=== PATIENT | female | born 1955 | race Caucasian/White ===

== ENCOUNTER 2016-12-15 10:52 | Inpatient (IN) | payer BC ==
[~2016-12-15] VITALS: Ht 160 cm; Wt 72.6 kg
--- NOTE | ~2016-12-15 | O ---
[facility] [place] [address] OPERATIVE REPORT Name: JH NIELSON ISAIAS Room #: 548-I ADM IN M.R.#: [id number] Admission: 12/15/16 Attend Phys: Marcelino Coleman Discharge: Date of : 55 Report #: [id number] THIS REPORT FOR: //name// CC: Lamont BEY DATE OF SERVICE: 12/16/2016 SURGEON: Tim Cruz M.D. PREOPERATIVE DIAGNOSIS: Neck abscess. POSTOPERATIVE DIAGNOSIS: Neck abscess. OPERATIVE PROCEDURE: Incision and drainage of neck abscess. ANESTHESIA: General. ESTIMATED BLOOD LOSS: 3 mL. INDICATIONS: The patient is a 61-year-old female who has developed a submental neck abscess following a dog bite to the neck. She has been treated with intravenous Zosyn. She has a well demarcated submental neck abscess. DESCRIPTION OF PROCEDURE: The patient was placed on the operating table in a supine position. After general anesthesia was achieved, attention was turned to the neck. I injected the soft tissue around the abscess site with 0.5% Marcaine with epinephrine. The neck was then prepped with Betadine. A 2 cm horizontal incision was made in the submental skin. The abscess cavity is opened with a Lexy forceps. Pus came from this and was cultured. There was actually necrotic tissue and a deep forming abscess. I was able to insert my finger and break some loculations loose and open up the abscess space. This was then irrigated with sterile saline. A 5/8 inch [place] drain was inserted and secured to the skin with 4-0 nylon suture. Gauze dressing was applied. The patient was awakened in the operating room, taken to recovery room in stable condition. She will be observed overnight and continued on intravenous antibiotics per the direction of Dr. Dany Rodriguez. Diet will be advanced as tolerated. ACTIVITY: Limited. [facility] [address] [place] [address] OPERATIVE REPORT Name: NISREENJH ISAIAS Room #: 548-I ADM IN [facility].#: [id number] Admission: 12/15/16 Attend Phys: Marcelino Coleman Discharge: Date of : 55 Report #: [id number] She will have the drain in for 3-4 days. <ELECTRONICALLY SIGNED> By: Tim Cruz MD 12/16/16 [id number] 1825 Tim Cruz MD /nt
--- NOTE | ~2016-12-15 | H ---
[facility] [place] [address] [place] [address] HISTORY AND PHYSICAL Name: NISREENJH ISAIAS Room #: 548-I ADM IN .R.#: [id number] Admission: 12/15/16 Attend Phys: Marcelino Coleman Discharge: Date of : 55 Report #: [id number] THIS REPORT FOR: //name// CC: Lamont BEY DATE OF SERVICE: 12/15/2016 CHIEF COMPLAINT: Neck pain. HISTORY OF PRESENT ILLNESS: The patient is a 61-year-old female who was admitted after being bitten by her dog several days ago just below the chin. She had increasing swelling and redness. She was treated on an outpatient basis through the emergency room with Augmentin. However, she developed spontaneous drainage yesterday from the wound and has felt some mild chills. She is admitted for IV antibiotics. PAST MEDICAL HISTORY: Breast cancer, she takes Arimidex; hypertension and depression. PAST SURGICAL HISTORY: She has had bilateral mastectomy with breast reconstruction in 2010. She had radiation therapy. She has also had hysterectomy, arthroscopic knee surgery and a laparoscopic gastric banding. FAMILY HISTORY: Noncontributory. SOCIAL HISTORY: No chronic alcohol or tobacco use. ALLERGIES: OXYCODONE, CODEINE and ACETAMINOPHEN. MEDICATIONS: Arimidex and Augmentin. REVIEW OF SYSTEMS: She denies headache, chest pain, shortness of breath, abdominal pain, nausea, vomiting, diarrhea, constipation, dysuria or syncope. PHYSICAL EXAMINATION: VITAL SIGNS: Temperature 36.7, pulse 72, respirations 18 and blood pressure 126/65. GENERAL: She is awake and alert, in no distress. HEENT: There is some redness under the chin. LUNGS: Clear. HEART: Regular. ABDOMEN: Soft. Normoactive bowel sounds. EXTREMITIES: No edema. NEUROLOGIC: Nonfocal. [facility] [address] [place] [address] HISTORY AND PHYSICAL Name: JH NIELSON [facility] Room #: 548-I ADM IN .R.#: [id number] Admission: 12/15/16 Attend Phys: Marcelino Coleman Discharge: Date of : 55 Report #: [id number] ASSESSMENT: Cellulitis. PLAN: ID and ENT are involved. She may need some debridement later today, as re-assessed by Dr. Cruz. Continue current medications. <ELECTRONICALLY SIGNED> By: Shawn Aburto MD 12/16/16 1559 1012 1057 Shawn Aburto MD /nt
--- NOTE | ~2016-12-15 | D ---
[facility] [place] [address] DISCHARGE SUMMARY Name: JH NIELSON Room #: 548-I [facility] IN M.R.#: [id number] Admission: 12/15/16 Attend Phys: Marcelino Coleman Discharge: 12/18/16 Date of : 55 Report #: [id number] THIS REPORT FOR: //name// CC: Lamont BEY DATE OF SERVICE: 12/18/2016 FINAL DIAGNOSES: Facial abscess. HOSPITAL COURSE: The patient was admitted from home after failing an outpatient treatment for a dog bite under her chin. She was found to have an abscess. She was taken to the operating room by Dr. Cruz for incision and debridement. Please see the separate dictated operative note. Dr. Dany Rodriguez followed her and ordered IV antibiotics. She had no other interval complication. DISPOSITION: She is being discharged to home with diet and activity as tolerated. She will have wound packing and follow up with Dr. Cruz. Outpatient IV antibiotics have been arranged. <ELECTRONICALLY SIGNED> By: Shawn Aburto MD 12/26/16 0940 1629 1651 Shawn Aburto MD /nt
--- NOTE | ~2016-12-15 | HC ---
[facility] [place] [address] [place] [address] CONSULTATION Name: NISREENJH ISAIAS Room #: 548-I ADM IN M.R.#: [id number] Admission: 12/15/16 Attend Phys: Marcelino Coleman Discharge: Date of : 55 Report #: [id number] THIS REPORT FOR: //name// CC: Lamont BEY REASON FOR CONSULTATION: Submental soft tissue infection after dog bite. HISTORY OF PRESENT ILLNESS: The patient is a 61-year-old previous history of breast cancer on Arimidex who was bitten several days ago by her own dog, just below the chin. Also had a bite injury to her right second finger. Presented to the Emergency Room with tetanus immunization updated. No incision and drainage performed. Treated with Augmentin and discharged. She had some spontaneous drainage yesterday from the bite wound. This morning, much increased in the swelling in the submental region along with some mild chills. No documented fever. She has malaise. REVIEW OF SYSTEMS: Notes no nausea, vomiting, diarrhea, dysuria or frequency. No headache. She is able to swallow without issue. Appetite has been reasonable. ALLERGIES: CODEINE. MEDICATIONS: As noted on her MAR including Augmentin. She was placed on Zosyn today. PAST MEDICAL HISTORY: Bilateral mastectomy, breast reconstruction 2010, right eye choroid melanoma, status post radiation treatment, hypertension, depression, laparoscopic banding, hysterectomy, arthroscopic knee surgery. FAMILY HISTORY: Noncontributory. SOCIAL HISTORY: Nonsmoker, no significant alcohol intake. PHYSICAL EXAMINATION: VITAL SIGNS: Afebrile, hemodynamically stable. GENERAL: Alert, cooperative and pleasant. She had a bite injury to her submental region involving her neck. Indurated, exquisitely tender, ecchymotic with one puncture wound evident with an eschar. NECK: No lymphadenopathy. Otherwise supple. HEENT: Trachea was midline, unremarkable. Mouth unremarkable. Able to swallow without difficulty. Phonation was normal. NEUROLOGICAL: Cranial nerves intact. LUNGS: Clear. HEART: Regular. ABDOMEN: Soft. EXTREMITIES: The right second finger, small laceration with induration and [facility] [address] [place] [address] CONSULTATION Name: JH NIELSON [facility] Room #: 548-I ADM IN [facility].#: [id number] Admission: 12/15/16 Attend Phys: Marcelino Coleman Discharge: Date of : 55 Report #: [id number]. No purulent drainage identified. LABORATORY STUDIES: CT scan of the neck. Mild straining in the ____ below the mandible and floor of the mouth with no definite fluid collection. Sodium 138, potassium 4.2, bicarbonate 30, creatinine is 0.7. Hemoglobin 12.8, white count 7.1, platelet count 239,000, 73% segs, 13% lymphs. IMPRESSION: A 61-year-old status post dog bite having failed oral antibiotic therapy. Recommend continuing IV antibiotic therapy, apply heat. We will have surgery standby for if she does not begin to improve with the incision and drainage. <ELECTRONICALLY SIGNED> By: Dany Rodriguez MD 12/16/16 1857 1426 2219 Dany Rodriguez MD /nt
[2016-12-15 10:52] VITALS: BP 126/79
[~2016-12-15 10:52] MED LIST: ANCEF 1GM1 GM/50 M1; ARIMIDEX1 MG PO; ATIVAN0.5 MG PO; BACTRIM; BENICAR; BENICAR40 MG PO; BYSTOLIC 5 MG5 M1 PO; CRESTOR; CRESTOR10 MG PO; LEXAPRO20 MG PO; NORCO 5-325 TA1 EACH PO; SYNTHROID; TYLENOL325 MG PO; WELLBUTRIN XL300 MG PO
[2016-12-15] MEDS ORDERED: AMOXICILLIN 50500 MG PO (11:19)
[2016-12-15] MEDS ORDERED: BENICAR40 MG PO (11:22)
[2016-12-15 12:03] LABS: ABSOLUTE NEUTROPHILS 5.2 thou/uL (1.4-8.2); BASOPHILS 0.6 % (0.0-2.0); EOSINOPHILS 2.2 % (0.0-3.0); HEMATOCRIT 38.6 % (37.0-47.0); HEMOGLOBIN 12.8 gm/dL (12.0-15.0); LYMPHOCYTES 15.8 % (24.0-44.0); MCH 27.6 pg (26.0-34.0); MCHC 33.2 % (28.0-37.0); MCV 83.3 fL (80.0-100.0); MONOCYTES 7.8 % (1.0-8.0); PLATELET COUNT 239 thou/uL (150-400); POLYS 73.6 % (36.0-66.0); RBC 4.63 mil/uL (4.20-5.00); RDW 13.8 % (10.5-14.5); WBC 7.1 thou/uL (4.0-11.0)
[2016-12-15 12:04] LABS: MANUAL DIFF NO
[2016-12-15 12:07] LABS: CALCIUM 9.1 mg/dL (8.5-10.1); CREATININE 0.7 mg/dL (0.6-1.3); POTASSIUM 4.2 mmol/L (3.5-5.1)
[2016-12-15 14:58] VITALS: BP 140/64
[2016-12-15] MEDS ORDERED: AUGMENTIN 875875 MG PO (16:04)
[2016-12-15] MEDS ORDERED: IBUPROFEN 200200 M1 PO (16:06)
[2016-12-15 21:49] VITALS: BP 125/58
[2016-12-15 23:50] VITALS: BP 96/46
[2016-12-16 05:01] VITALS: BP 126/65
[2016-12-16 20:40] VITALS: BP 127/63
[2016-12-17 04:02] VITALS: BP 139/63
[2016-12-17 16:26] VITALS: BP 142/62
[2016-12-17 19:27] VITALS: BP 136/68
[2016-12-18 04:24] VITALS: BP 118/72
[2016-12-18 08:00] VITALS: BP 142/58
== END 2016-12-18 18:40 | disposition home or self-care (01) | DRG 581 ==
LOC: ER 10:52 → EROBS 13:12 → 5S 13:12
PROVIDERS: Emergency Medicine
PROC: 0J940ZZ Drainage of Right Neck Subcutaneous Tissue and Fascia, Open Approach (ICD-10-PCS; principal; 2016-12-16)
DX: L02.11 Cutaneous abscess of neck (principal); S10.87XA Other superficial bite of other specified part of neck, initial encounter; F32.9 Major depressive disorder, single episode, unspecified; K21.9 Gastro-esophageal reflux disease without esophagitis; I10 Essential (primary) hypertension; F41.9 Anxiety disorder, unspecified; J45.909 Unspecified asthma, uncomplicated; W54.0XXA Bitten by dog, initial encounter; Z88.6 Allergy status to analgesic agent; Y93.89 Activity, other specified; Y92.89 Other specified places as the place of occurrence of the external cause; Y99.9 Unspecified external cause status; Z90.710 Acquired absence of both cervix and uterus; Z98.890 Other specified postprocedural states; Z98.84 Bariatric surgery status; Z85.41 Personal history of malignant neoplasm of cervix uteri; Z85.840 Personal history of malignant neoplasm of eye; Z79.899 Other long term (current) drug therapy; Z90.13 Acquired absence of bilateral breasts and nipples; Z85.3 Personal history of malignant neoplasm of breast
CPT/HCPCS: 10785; 50010; 50101; 50386; 50403; 56526; 62110; 70005

== ENCOUNTER → 2016-12-19 | Outpatient (CLI) | payer OTHER ==
[~2016-12-19] MED LIST changes: +AMOXICILLIN 50500 MG PO; +AUGMENTIN 875875 MG PO; +IBUPROFEN 200200 M1 PO
[2016-12-19 13:32] VITALS: BP 128/76
== END ==
LOC: OPONC 05:00
DX: L03.211 Cellulitis of face (principal)
CPT/HCPCS: 95000

== ENCOUNTER 2016-12-20 12:00 | Emergency (ER) | payer OTHER ==
--- NOTE | ~2016-12-20 | HC ---
[facility] [place] [address] CONSULTATION Name: VELIA NIELSONARERonni ESPARZA Room #: DEP HEIDI [place]#: [id number] Admission: 12/20/16 Attend Phys: Discharge: 12/20/16 Date of : 55 Report #: [id number] THIS REPORT FOR: //name// CC: Dany Rodriguez Jerardo Garcia DATE OF SERVICE: 12/20/2016 REASON FOR CONSULTATION: Neck infections. HISTORY OF PRESENT ILLNESS: The patient is a 61-year-old female previously seen earlier in the week with a neck abscess related to a dog bite. She has been getting intravenous antibiotics. I am seeing her as she was having trouble with her neck. Apparently the cotton tip that was being used to clean her incision was stuffed in the wound. PHYSICAL EXAMINATION: GENERAL: Pleasant female in no acute distress. NECK: A 2 cm open wound with Adriano drain and cotton tip applicator in the incision. PROCEDURE: Removed cotton tip applicator. Used sterile hemostat and alcohol wipes to clean wound and open up the incision more widely with blunt probing and dissection to break loose loculations. ASSESSMENT: Neck abscess being treated medically and surgically. PLAN: Continue intravenous antibiotics. <ELECTRONICALLY SIGNED> By: Tim Cruz MD 12/23/16 2032 133 55 Tim Cruz MD /nt
== END 2016-12-20 12:42 | disposition left against medical advice (07) ==
LOC: CANPREER → ER 12:00
DX: Z53.21 Procedure and treatment not carried out due to patient leaving prior to being seen by health care provider (principal)

== ENCOUNTER → 2016-12-20 | Outpatient (CLI) | payer OTHER ==
[2016-12-20 10:42] VITALS: BP 113/77
[2016-12-20 11:45] VITALS: BP 120/78
== END ==
LOC: OPONC 11:55
DX: L03.211 Cellulitis of face (principal)
CPT/HCPCS: 95000

== ENCOUNTER → 2016-12-21 | Outpatient (CLI) | payer OTHER ==
[2016-12-21 10:28] VITALS: BP 132/74
[2016-12-21 11:37] VITALS: BP 126/72
== END ==
LOC: OPONC 09:04
DX: L03.211 Cellulitis of face (principal)
CPT/HCPCS: 95000